=== PATIENT | male | born 1990 | race Caucasian/White ===

== ENCOUNTER 2017-02-05 23:58 | Emergency (ER) | payer SELFPAY | END 2017-02-06 00:45 | disposition left against medical advice (07) | LOC: ER 23:58 | DX: J02.9 Acute pharyngitis, unspecified (principal); Z53.21 Procedure and treatment not carried out due to patient leaving prior to being seen by health care provider ==

== ENCOUNTER 2017-02-06 11:56 | Emergency (ER) | payer SELFPAY ==
[~2017-02-06] VITALS: Ht 182.9 cm; Wt 75.0 kg
[2017-02-06 12:20] VITALS: BP 116/77
[2017-02-06] MEDS: TETRACAINE 0.5% OPHTH DROPS 4ML OP ONE (17:00)
[2017-02-06] MEDS: FLUORESCEIN SODIUM 1MG/STRIP OP ONE (17:00)
== END 2017-02-06 18:56 | disposition home or self-care (01) ==
LOC: ER 11:56
DX: H10.89 Other conjunctivitis (principal); J02.9 Acute pharyngitis, unspecified
CPT/HCPCS: 99283; Z7610

== ENCOUNTER 2017-07-07 08:41 | Emergency (ER) | payer SELFPAY ==
[~2017-07-07] VITALS: Ht 182.9 cm; Wt 75.0 kg
[2017-07-07] MEDS ORDERED: ONDANSETRON HCL 4MG/2ML VIAL IV STA (09:40)
[2017-07-07] MEDS ORDERED: SODIUM CHLORIDE 0.9% 1,000 ML IV ONE (09:40)
[2017-07-07] MEDS ORDERED: KETOROLAC 30MG/ML VIAL IV STA (09:40)
[2017-07-07] MEDS ORDERED: FAMOTIDINE 20MG/2ML VIAL IV ONE (09:45)
[2017-07-07 09:58] LABS: HEMATOCRIT. 42.6 % (42.0-52.0); HEMOGLOBIN. 14.1 g/dL (14.0-18.0); MEAN CORPUSCULAR HEMOGLOBIN 25.8 pg (28.0-32.0); PLATELET 191 x1000/uL (130-400); RED BLOOD CELL COUNT 5.46 mill/uL (4.7-6.1); RED CELL DISTRIBUTION WIDTH 14.2 % (11.6-14.6)
[2017-07-07 10:03] LABS: CHLORIDE 102 mEq/L (98-107)
[2017-07-07 10:36] LABS: PLATELET ESTIMATE NORMAL
[2017-07-07 10:56] LABS: CLARITY URINE CLEAR (CLEAR); COLOR URINE YELLOW (YELLOW); KETONES URINE 1+ (NEGATIVE); LEUKOCYTE ESTERASE URINE NEGATIVE (NEGATIVE); NITRITE URINE NEGATIVE (NEGATIVE); OCCULT BLOOD URINE NEGATIVE (NEGATIVE); PROTEIN URINE TRACE (NEGATIVE); SPECIFIC GRAVITY URINE 1.027 (1.005-1.030)
[2017-07-07 11:14] LABS: *AMPHETAMINES SCREEN URINE NEGATIVE (NEGATIVE); *BARBITURATES SCREEN URINE NEGATIVE (NEGATIVE); *BENZODIAZEPINES SCREEN URINE NEGATIVE (NEGATIVE); *COCAINE SCREEN URINE NEGATIVE (NEGATIVE); CANNABINOID URINE SCREEN NEGATIVE (NEGATIVE); METHADONE URINE SCREEN NEGATIVE (NEGATIVE); OPIATES URINE SCREEN NEGATIVE (NEGATIVE); PHENCYCLIDINE URINE SCREEN NEGATIVE (NEGATIVE)
[2017-07-07 12:45] VITALS: BP 106/57
== END 2017-07-07 13:16 | disposition home or self-care (01) ==
LOC: ER 08:41
DX: R10.84 Generalized abdominal pain (principal); D72.829 Elevated white blood cell count, unspecified; M19.90 Unspecified osteoarthritis, unspecified site
CPT/HCPCS: 36415; 80053; 80305; 81003; 83690; 85025; 96361; 96374; 96375; 99284; J1885; J2405; J3490; J7030

== ENCOUNTER 2018-08-23 13:26 | Emergency (ER) | payer SELFPAY ==
[~2018-08-23] VITALS: Ht 185.4 cm; Wt 80.0 kg
[2018-08-23 19:32] VITALS: BP 120/84
== END 2018-08-23 19:33 | disposition home or self-care (01) ==
LOC: ER 14:04
DX: K62.89 Other specified diseases of anus and rectum (principal)
CPT/HCPCS: 99282

== ENCOUNTER 2018-10-31 12:22 | Emergency (ER) | payer SELFPAY ==
[~2018-10-31] VITALS: Ht 185.4 cm; Wt 71.0 kg
[2018-10-31] MEDS ORDERED: KETOROLAC 30MG/ML VIAL IM ONE (17:00)
[2018-10-31 18:07] VITALS: BP 118/88
== END 2018-10-31 18:10 | disposition home or self-care (01) ==
LOC: ER 12:22
DX: J02.9 Acute pharyngitis, unspecified (principal)
CPT/HCPCS: 87070; 87430; 96372; 99283; J1885

== ENCOUNTER 2019-04-24 04:01 | Emergency (ER) | payer SELFPAY ==
[~2019-04-24] VITALS: Ht 188 cm; Wt 73.0 kg
[2019-04-24] MEDS ORDERED: HYDROCODONE/ACETAMINOPHEN 5/325MG TABLET PO ONE ×2 (05:00→07:30)
[2019-04-24] MEDS ORDERED: BACITRACIN ZINC OINT UDPKT TOP ONE ×3 (05:00→09:00)
[2019-04-24] MEDS ORDERED: IBUPROFEN 600MG TABLET PO ONE (05:00)
[2019-04-24] MEDS ORDERED: TETANUS, DIPHTHERIA, PERTUSSIS VAC/PF 0.5ML (>7YR OLD) IM ONE (05:00)
[2019-04-24] MEDS ORDERED: LIDOCAINE 1%/EPI 1:100,000 10 ML VIAL IJ ONE (06:30)
[2019-04-24] MEDS ORDERED: ACETAMINOPHEN 325MG TABLET PO ONE (06:30)
[2019-04-24] MEDS ORDERED: LIDOCAINE HCL/EPINEPHRINE 1%-EPI 1:100,000 20 ML VIAL INFIL SCH (06:45)
[2019-04-24 09:24] VITALS: BP 132/77
== END 2019-04-24 09:27 | disposition home or self-care (01) ==
LOC: ER 04:01
DX: S01.81XA Laceration without foreign body of other part of head, initial encounter (principal); S20.211A Contusion of right front wall of thorax, initial encounter; M19.90 Unspecified osteoarthritis, unspecified site; Y08.89XA Assault by other specified means, initial encounter; Y93.89 Activity, other specified; Y92.29 Other specified public building as the place of occurrence of the external cause
CPT/HCPCS: 12014; 70450; 71101; 73110; 90471; 90715; 99284; A4217; J3490; Z7610

== ENCOUNTER 2024-06-27 08:30 | Emergency (ER) | payer SELFPAY ==
[~2024-06-27] VITALS: Ht 185.4 cm; Wt 72.5 kg
[2024-06-27 08:36] VITALS: BP 118/69; PULSE 59; TEMP 36.6; O2SAT 99
[2024-06-27 08:38] VITALS: RESP 59
== END 2024-06-27 09:44 | disposition home or self-care (01) ==
LOC: ER 08:48
DX: Z45.2 Encounter for adjustment and management of vascular access device (principal); M19.90 Unspecified osteoarthritis, unspecified site
CPT/HCPCS: 99281

== ENCOUNTER 2025-03-28 17:25 | Emergency (ER) | payer MEDICAID, OTHER ==
[~2025-03-28] VITALS: Ht 185.4 cm; Wt 75.0 kg
[2025-03-28 17:33] VITALS: TEMP 36.7; O2SAT 99
[2025-03-28] MEDS: KETOROLAC 30MG/ML VIAL IM ONE (19:49)
[2025-03-28] MEDS ORDERED: ACET-2708 MT (19:56)
[2025-03-28] MEDS ORDERED: IBUP-2028 MT (19:56)
[2025-03-28 20:00] VITALS: BP 122/76; PULSE 61; RESP 18; O2SAT 98
== END 2025-03-28 20:10 | disposition home or self-care (01) ==
LOC: ER 17:25
DX: S52.602A Unspecified fracture of lower end of left ulna, initial encounter for closed fracture (principal); M19.032 Primary osteoarthritis, left wrist; Z98.49 Cataract extraction status, unspecified eye; W01.198A Fall on same level from slipping, tripping and stumbling with subsequent striking against other object, initial encounter; Y93.89 Activity, other specified; Y92.89 Other specified places as the place of occurrence of the external cause; Y99.8 Other external cause status
CPT/HCPCS: 99283; 73110; 96372; J1885